=== PATIENT | female | born 1960 | race Caucasian/White ===

== ENCOUNTER 2016-08-17 17:09 | Observation (INO) | payer MEDICARE, MEDICAID ==
[~2016-08-17] VITALS: Ht 152.4 cm; Wt 88.8 kg
[~2016-08-17 17:09] MED LIST: DIVA500T2 PO; FLUO40CA9 PO; LEVO100T PO; NITR100C PO; RISP1TAB45 PO; TRAZ100T15 PO; TRAZODONE; ZIPR20CA2 PO
[2016-08-17 18:15] LABS: DAU SCREEN DISCLAIMER
[2016-08-17 18:35] LABS: BLOOD UREA NITROGEN 7 mg/dL (7-18)
[2016-08-17 18:44] LABS: ASPARTATE AMINO TRANSFERASE 17 U/L (15-37)
[2016-08-17 19:01] LABS: ACETAMINOPHEN < 2 mcg/mL (10-30)
[2016-08-17 19:02] LABS: PATH.CAST-FLAG NOT PRESENT; SPERM-FLAG NOT PRESENT; SRC-FLAG NOT PRESENT; XTAL-FLAG NOT PRESENT; YLC-FLAG NOT PRESENT
[2016-08-17] MEDS ORDERED: BENZTROPINE 1 MG TABLET PO PRN (22:00)
[2016-08-17 22:24] VITALS: BP 124/78
[2016-08-17] MEDS ORDERED: ALUMINUM/MAG/SIMETHICONE 30 ML UDC PO PRN (22:30)
[2016-08-17] MEDS ORDERED: PLEASE ENTER HEIGHT AND WEIGHT MC SCH (22:30)
[2016-08-17] MEDS: SULFAMETH./TRIMETHOPRIM DS 800MG/160MG TABLET PO SCH (23:06)
[2016-08-17] MEDS: ENOXAPARIN 40 MG/0.4 ML SQ SCH (23:07)
[2016-08-17] MEDS: NICOTINE 14MG/24 HR PATCH.TD24 TD SCH (23:08)
[2016-08-17] MEDS: TRAZODONE 100MG TABLET PO SCH (23:30)
[2016-08-18 08:09] VITALS: BP 100/66
[2016-08-18] MEDS: FLUOXETINE 20 MG CAPSULE PO SCH (08:32)
[2016-08-18] MEDS: SULFAMETH./TRIMETHOPRIM DS 800MG/160MG TABLET PO SCH ×2 (08:32→20:21)
[2016-08-18] MEDS: LEVOTHYROXINE 100 MCG TABLET PO SCH (08:32)
[2016-08-18] MEDS ORDERED: RISPERIDONE 1 MG TABLET PO SCH ×2 (09:00→21:00)
[2016-08-18] MEDS ORDERED: DIVALPROEX 500 MG TABLET.DR PO SCH ×2 (09:00→21:00)
[2016-08-18] MEDS: ACETAMINOPHEN 325 MG TABLET PO PRN ×2 (16:17→20:27)
[2016-08-18] MEDS: DIVALPROEX 500 MG TABLET.DR PO SCH (20:20)
[2016-08-18] MEDS: TRAZODONE 100MG TABLET PO SCH (20:20)
[2016-08-18] MEDS: ZIPRASIDONE 40MG CAPSULE PO SCH (20:20)
[2016-08-18 20:30] VITALS: BP 115/77
[2016-08-18] MEDS ORDERED: TRAZODONE 100MG TABLET PO SCH (21:00)
[2016-08-18] MEDS: NICOTINE 14MG/24 HR PATCH.TD24 TD SCH (22:14)
[2016-08-18] MEDS: ENOXAPARIN 40 MG/0.4 ML SQ SCH (22:14)
[2016-08-19] MEDS: LEVOTHYROXINE 100 MCG TABLET PO SCH (05:59)
[2016-08-19 07:49] VITALS: BP 107/69
[2016-08-19] MEDS: SULFAMETH./TRIMETHOPRIM DS 800MG/160MG TABLET PO SCH (08:39)
[2016-08-19] MEDS: FLUOXETINE 20 MG CAPSULE PO SCH (08:40)
[2016-08-19] MEDS: ACETAMINOPHEN 325 MG TABLET PO PRN ×2 (08:45→17:35)
[2016-08-19] MEDS: NICOTINE 14MG/24 HR PATCH.TD24 TD SCH (14:16)
[2016-08-19] MEDS ORDERED: NITR100C6 PO (15:47)
[2016-08-19 19:25] VITALS: BP 112/78
[2016-08-19] MEDS: ZIPRASIDONE 40MG CAPSULE PO SCH ×2 (20:07→20:39)
[2016-08-19] MEDS: DIVALPROEX 500 MG TABLET.DR PO SCH (20:07)
[2016-08-19] MEDS: NITROFURANTOIN (MACROBID) 100 MG CAPSULE PO SCH (20:07)
[2016-08-19] MEDS: TRAZODONE 100MG TABLET PO SCH (20:07)
[2016-08-19] MEDS: ENOXAPARIN 40 MG/0.4 ML SQ SCH (22:04)
[2016-08-20] MEDS: LEVOTHYROXINE 100 MCG TABLET PO SCH (05:58)
[2016-08-20 08:04] VITALS: BP 107/73
[2016-08-20] MEDS: NITROFURANTOIN (MACROBID) 100 MG CAPSULE PO SCH ×2 (08:45→21:13)
[2016-08-20] MEDS: FLUOXETINE 20 MG CAPSULE PO SCH (08:46)
[2016-08-20] MEDS: ACETAMINOPHEN 325 MG TABLET PO PRN (09:43)
[2016-08-20 19:46] VITALS: BP 103/67
[2016-08-20] MEDS: ZIPRASIDONE 40MG CAPSULE PO SCH (21:00)
[2016-08-20] MEDS: DIVALPROEX 500 MG TABLET.DR PO SCH (21:13)
[2016-08-20] MEDS: TRAZODONE 100MG TABLET PO SCH (21:13)
[2016-08-20] MEDS: ENOXAPARIN 40 MG/0.4 ML SQ SCH (21:14)
[2016-08-21] MEDS: LEVOTHYROXINE 100 MCG TABLET PO SCH (07:00)
[2016-08-21 08:00] VITALS: BP 105/67
[2016-08-21] MEDS: FLUOXETINE 20 MG CAPSULE PO SCH (09:00)
[2016-08-21] MEDS: NITROFURANTOIN (MACROBID) 100 MG CAPSULE PO SCH ×2 (09:03→20:52)
[2016-08-21] MEDS: NICOTINE 14MG/24 HR PATCH.TD24 TD SCH (09:05)
[2016-08-21] MEDS: ACETAMINOPHEN 325 MG TABLET PO PRN ×2 (11:18→20:52)
[2016-08-21 19:43] VITALS: BP 123/77
[2016-08-21] MEDS: TRAZODONE 100MG TABLET PO SCH (20:51)
[2016-08-21] MEDS: DIVALPROEX 500 MG TABLET.DR PO SCH (20:51)
[2016-08-21] MEDS: ZIPRASIDONE 40MG CAPSULE PO SCH (20:52)
[2016-08-21] MEDS: ENOXAPARIN 40 MG/0.4 ML SQ SCH (21:48)
[2016-08-22] MEDS: LEVOTHYROXINE 100 MCG TABLET PO SCH (06:28)
[2016-08-22 08:00] VITALS: BP 105/70
[2016-08-22] MEDS: NITROFURANTOIN (MACROBID) 100 MG CAPSULE PO SCH ×2 (09:00→21:00)
[2016-08-22] MEDS: FLUOXETINE 20 MG CAPSULE PO SCH (09:00)
[2016-08-22] MEDS: NICOTINE 14MG/24 HR PATCH.TD24 TD SCH (09:00)
[2016-08-22] MEDS: ACETAMINOPHEN 325 MG TABLET PO PRN (11:56)
[2016-08-22 19:43] VITALS: BP 109/75
[2016-08-22] MEDS: ENOXAPARIN 40 MG/0.4 ML SQ SCH ×2 (20:46→20:58)
[2016-08-22] MEDS: DIVALPROEX 500 MG TABLET.DR PO SCH ×2 (20:46→20:58)
[2016-08-22] MEDS: TRAZODONE 100MG TABLET PO SCH ×2 (20:47→20:59)
[2016-08-22] MEDS: ZIPRASIDONE 40MG CAPSULE PO SCH (20:57)
[2016-08-23] MEDS: LEVOTHYROXINE 100 MCG TABLET PO SCH (06:32)
[2016-08-23 07:39] VITALS: BP 101/62
[2016-08-23] MEDS: NITROFURANTOIN (MACROBID) 100 MG CAPSULE PO SCH (09:14)
[2016-08-23] MEDS: FLUOXETINE 20 MG CAPSULE PO SCH (09:16)
[2016-08-23] MEDS: NICOTINE 14MG/24 HR PATCH.TD24 TD SCH (09:17)
[2016-08-23] MEDS ORDERED: IBUPROFEN 200 MG TABLET ONE (10:37)
[2016-08-23] MEDS: IBUPROFEN 200 MG TABLET PO PRN ×2 (10:44→19:39)
[2016-08-23 19:52] VITALS: BP 108/73
[2016-08-23] MEDS: DIVALPROEX 500 MG TABLET.DR PO SCH (20:37)
[2016-08-23] MEDS: TRAZODONE 100MG TABLET PO SCH (20:38)
[2016-08-23] MEDS: ZIPRASIDONE 40MG CAPSULE PO SCH (20:39)
[2016-08-23] MEDS ORDERED: ENOXAPARIN 40 MG/0.4 ML SQ SCH (21:00)
[2016-08-24] MEDS: LEVOTHYROXINE 100 MCG TABLET PO SCH (06:33)
[2016-08-24 07:39] VITALS: BP 119/79
[2016-08-24] MEDS: FLUOXETINE 20 MG CAPSULE PO SCH (07:59)
[2016-08-24] MEDS: NICOTINE 14MG/24 HR PATCH.TD24 TD SCH (07:59)
[2016-08-24 19:14] VITALS: BP 140/77
[2016-08-24] MEDS: DIVALPROEX 500 MG TABLET.DR PO SCH (20:48)
[2016-08-24] MEDS: ZIPRASIDONE 40MG CAPSULE PO SCH (20:48)
[2016-08-24] MEDS: TRAZODONE 100MG TABLET PO SCH (20:48)
[2016-08-24] MEDS ORDERED: ENOXAPARIN 40 MG/0.4 ML SQ SCH (21:00)
[2016-08-25] MEDS: LEVOTHYROXINE 100 MCG TABLET PO SCH (07:23)
[2016-08-25 07:35] VITALS: BP 132/68
[2016-08-25] MEDS: FLUOXETINE 20 MG CAPSULE PO SCH (08:50)
[2016-08-25] MEDS: NICOTINE 14MG/24 HR PATCH.TD24 TD SCH (08:54)
[2016-08-25] MEDS: IBUPROFEN 200 MG TABLET PO PRN (18:04)
== END 2016-08-25 19:00 ==
LOC: ED 21:51 → 3E 22:22 → UNDOADMOB 22:22 → 3E 08-21 20:29
PROVIDERS: ADMIT Internal Medicine; ATTEND Internal Medicine
DX: F33.9 Major depressive disorder, recurrent, unspecified (principal); R45.851 Suicidal ideations; N39.0 Urinary tract infection, site not specified; B96.20 Unspecified Escherichia coli [E. coli] as the cause of diseases classified elsewhere; F10.10 Alcohol abuse, uncomplicated; E03.9 Hypothyroidism, unspecified; Z87.891 Personal history of nicotine dependence; Z90.710 Acquired absence of both cervix and uterus
CPT/HCPCS: 36415; 80053; 80164; 80307; 80329; 81001; 84443; 84703; 85025; 87077; 87086; 87186; 96372; 99285; G0378; J1650; Q0177; G0480

== ENCOUNTER 2016-10-28 08:22 | Emergency (ER) | payer MEDICARE, MEDICAID ==
[~2016-10-28] VITALS: Ht 152.4 cm; Wt 94.0 kg
[~2016-10-28 08:22] MED LIST changes: +NITR100C6 PO
[2016-10-28 09:21] LABS: HCG UR OBC PASS
[2016-10-28 09:23] LABS: ASPARTATE AMINO TRANSFERASE 13 U/L (15-37); BLOOD UREA NITROGEN 14 mg/dL (7-18)
[2016-10-28 10:15] VITALS: BP 134/74
== END 2016-10-28 10:26 | disposition home or self-care (01) ==
LOC: ED 09:00
DX: M25.571 Pain in right ankle and joints of right foot (principal); R60.0 Localized edema; N30.90 Cystitis, unspecified without hematuria; E03.9 Hypothyroidism, unspecified; F20.9 Schizophrenia, unspecified; F32.9 Major depressive disorder, single episode, unspecified; F41.9 Anxiety disorder, unspecified
CPT/HCPCS: 36415; 80053; 81001; 81025; 83690; 84443; 85025; 87077; 87086; 87186; 99284

== ENCOUNTER 2016-12-11 15:23 | Emergency (ER) | payer MEDICARE, MEDICAID ==
[~2016-12-11] VITALS: Ht 152.4 cm; Wt 98.5 kg
[2016-12-11 16:59] LABS: HEMATOCRIT 43.6 % (34.6-47.8); HEMOGLOBIN 14.8 g/dL (11.7-16.4); WHITE BLOOD COUNT 9.9 x10^3/uL (3.4-10)
[2016-12-11 17:07] LABS: BLOOD UREA NITROGEN 12 mg/dL (7-18)
[2016-12-11 17:17] LABS: VALPROIC ACID 38.9 mcg/mL (50.0-100.0)
[2016-12-11 18:35] VITALS: BP 148/79
== END 2016-12-11 19:11 | disposition home or self-care (01) ==
LOC: ED 19:00
DX: F32.9 Major depressive disorder, single episode, unspecified (principal); F20.9 Schizophrenia, unspecified; E03.9 Hypothyroidism, unspecified; Z88.0 Allergy status to penicillin
CPT/HCPCS: 36415; 80048; 80164; 82040; 84439; 84443; 85025; 99284

== ENCOUNTER 2016-12-19 01:33 | Observation (INO) | payer MEDICARE, MEDICAID ==
[~2016-12-19] VITALS: Ht 152.4 cm; Wt 101.5 kg
[2016-12-19] MEDS ORDERED: SERT25TA PO (02:08)
[2016-12-19] MEDS ORDERED: RISP0.2518 PO (02:08)
[2016-12-19 02:21] LABS: DAU SCREEN DISCLAIMER
[2016-12-19 02:23] LABS: WHITE BLOOD COUNT 8.4 x10^3/uL (3.4-10)
[2016-12-19 02:35] LABS: PATH.CAST-FLAG NOT PRESENT; SPERM-FLAG NOT PRESENT; SRC-FLAG NOT PRESENT; XTAL-FLAG NOT PRESENT; YLC-FLAG NOT PRESENT
[2016-12-19 02:35] LABS: BLOOD UREA NITROGEN 16 mg/dL (7-18)
[2016-12-19 02:39] LABS: ASPARTATE AMINO TRANSFERASE 11 U/L (15-37)
[2016-12-19 02:44] LABS: ACETAMINOPHEN < 2 mcg/mL (10-30)
[2016-12-19] MEDS ORDERED: CIPROFLOXACIN 500 MG TABLET ONE (03:09)
[2016-12-19] MEDS ORDERED: CIPROFLOXACIN 500 MG TABLET PO ONE (03:30)
[2016-12-19] MEDS ORDERED: POLYETHYLENE GLYCOL 17 GM PACKET PO PRN (06:00)
[2016-12-19] MEDS ORDERED: TRAZODONE 50MG TABLET PO PRN (06:00)
[2016-12-19] MEDS ORDERED: DOCUSATE 100 MG CAPSULE PO PRN (06:00)
[2016-12-19] MEDS ORDERED: SULFAMETH./TRIMETHOPRIM DS 800MG/160MG TABLET ONE (08:33)
[2016-12-19] MEDS: SULFAMETH./TRIMETHOPRIM DS 800MG/160MG TABLET PO SCH ×2 (08:40→20:43)
[2016-12-19] MEDS ORDERED: ACETAMINOPHEN 325 MG TABLET ONE (09:10)
[2016-12-19] MEDS: ACETAMINOPHEN 325 MG TABLET PO PRN ×2 (09:12→19:13)
[2016-12-19] MEDS: SERTRALINE 50MG TABLET PO SCH (09:13)
[2016-12-19] MEDS ORDERED: ONDANSETRON ODT 4 MG ONE (09:17)
[2016-12-19] MEDS: ONDANSETRON ODT 4 MG PO PRN (09:23)
[2016-12-19 19:11] VITALS: BP 115/75
[2016-12-19 19:58] VITALS: BP 107/72
[2016-12-19] MEDS: RISPERIDONE 1 MG TABLET PO SCH (20:43)
[2016-12-20] MEDS: ACETAMINOPHEN 325 MG TABLET PO PRN ×4 (00:33→20:52)
[2016-12-20] MEDS: ONDANSETRON ODT 4 MG PO PRN (01:39)
[2016-12-20 07:31] VITALS: BP 104/68
[2016-12-20] MEDS: SULFAMETH./TRIMETHOPRIM DS 800MG/160MG TABLET PO SCH ×2 (08:31→20:52)
[2016-12-20] MEDS: SERTRALINE 50MG TABLET PO SCH (08:32)
[2016-12-20 19:42] VITALS: BP 107/68
[2016-12-20] MEDS: RISPERIDONE 1 MG TABLET PO SCH (20:52)
[2016-12-21 07:57] VITALS: BP 131/83
[2016-12-21] MEDS: ACETAMINOPHEN 325 MG TABLET PO PRN (08:49)
[2016-12-21] MEDS: SULFAMETH./TRIMETHOPRIM DS 800MG/160MG TABLET PO SCH (08:50)
[2016-12-21] MEDS: SERTRALINE 50MG TABLET PO SCH (08:50)
[2016-12-21] MEDS ORDERED: NITROFURANTOIN (MACROBID) 100 MG CAPSULE PO SCH (16:00)
[2016-12-21] MEDS: NICOTINE 14MG/24 HR PATCH.TD24 TD SCH (16:31)
[2016-12-21] MEDS: NITROFURANTOIN (MACROBID) 100 MG CAPSULE PO SCH ×2 (19:25→22:09)
[2016-12-21 19:46] VITALS: BP 114/74
[2016-12-21] MEDS: RISPERIDONE 1 MG TABLET PO SCH (20:53)
[2016-12-22 08:00] VITALS: BP 111/80
[2016-12-22] MEDS: NITROFURANTOIN (MACROBID) 100 MG CAPSULE PO SCH ×2 (08:12→20:31)
[2016-12-22] MEDS: SERTRALINE 50MG TABLET PO SCH (08:13)
[2016-12-22] MEDS: NICOTINE 14MG/24 HR PATCH.TD24 TD SCH (16:21)
[2016-12-22] MEDS ORDERED: ALBUTEROL SULFATE 2.5 MG/3 ML NPPB PRN (16:30)
[2016-12-22 19:19] VITALS: BP 103/70
[2016-12-22] MEDS: RISPERIDONE 1 MG TABLET PO SCH (20:32)
[2016-12-23] MEDS: LEVOTHYROXINE 100 MCG TABLET PO SCH (06:23)
[2016-12-23] MEDS: NITROFURANTOIN (MACROBID) 100 MG CAPSULE PO SCH ×2 (08:33→20:56)
[2016-12-23] MEDS: SERTRALINE 50MG TABLET PO SCH (08:33)
[2016-12-23 08:47] VITALS: BP 142/81
[2016-12-23] MEDS: NICOTINE 14MG/24 HR PATCH.TD24 TD SCH (16:51)
[2016-12-23] MEDS ORDERED: ALBUTEROL SULFATE 2.5 MG/3 ML NPPB PRN (19:30)
[2016-12-23] MEDS ORDERED: DOCUSATE 100 MG CAPSULE PO PRN (19:30)
[2016-12-23] MEDS ORDERED: POLYETHYLENE GLYCOL 17 GM PACKET PO PRN (19:30)
[2016-12-23 20:36] VITALS: BP 132/86
[2016-12-23] MEDS: RISPERIDONE 1 MG TABLET PO SCH (20:56)
[2016-12-24] MEDS: LEVOTHYROXINE 100 MCG TABLET PO SCH (06:16)
[2016-12-24 08:05] VITALS: BP_SYST 137; BP_SYST 95; BP_DIAS 61; BP_DIAS 88
[2016-12-24] MEDS: NITROFURANTOIN (MACROBID) 100 MG CAPSULE PO SCH ×2 (08:47→20:41)
[2016-12-24] MEDS: SERTRALINE 50MG TABLET PO SCH (08:47)
[2016-12-24] MEDS: NICOTINE 14MG/24 HR PATCH.TD24 TD SCH (16:13)
[2016-12-24 19:24] VITALS: BP 118/72
[2016-12-24] MEDS: RISPERIDONE 1 MG TABLET PO SCH (20:41)
[2016-12-24] MEDS: ACETAMINOPHEN 325 MG TABLET PO PRN (20:44)
[2016-12-25] MEDS: LEVOTHYROXINE 100 MCG TABLET PO SCH (06:26)
[2016-12-25 07:59] VITALS: BP 106/74
[2016-12-25] MEDS: SERTRALINE 50MG TABLET PO SCH (08:29)
[2016-12-25] MEDS: NITROFURANTOIN (MACROBID) 100 MG CAPSULE PO SCH (08:29)
[2016-12-25] MEDS: ACETAMINOPHEN 325 MG TABLET PO PRN (11:02)
[2016-12-25] MEDS ORDERED: NITR100C6 PO (15:58)
[2016-12-25] MEDS ORDERED: SERT50TA5 PO (15:58)
[2016-12-25] MEDS ORDERED: NICO-486 TD (15:58)
[2016-12-25] MEDS ORDERED: RISP1TAB45 PO (15:58)
[2016-12-25] MEDS: NICOTINE 14MG/24 HR PATCH.TD24 TD SCH (16:48)
== END 2016-12-25 17:00 ==
LOC: ED 03:53 → EDIP 05:36 → 3E 17:19
PROVIDERS: ADMIT Hospitalist; ATTEND Family Medicine
DX: R45.851 Suicidal ideations (principal); N39.0 Urinary tract infection, site not specified; B96.20 Unspecified Escherichia coli [E. coli] as the cause of diseases classified elsewhere; E03.9 Hypothyroidism, unspecified; F15.10 Other stimulant abuse, uncomplicated; F20.9 Schizophrenia, unspecified; Z59.0 Homelessness; Z91.5 Personal history of self-harm
CPT/HCPCS: 36415; 71010; 80053; 80307; 80329; 81001; 85025; 87077; 87086; 87186; 94640; 99285; G0378; Q0162; J7613; G0479; G0480

== ENCOUNTER 2017-03-27 16:26 | Observation (INO) | payer MEDICARE, MEDICAID ==
[~2017-03-27] VITALS: Ht 147.3 cm; Wt 101.6 kg
[~2017-03-27 16:26] MED LIST changes: +NICO-486 TD; +RISP0.2518 PO; +SERT25TA PO; +SERT50TA5 PO
[2017-03-27] MEDS ORDERED: FLUO10CA7 PO (17:27)
[2017-03-27 17:50] LABS: BASOPHILS # (AUTO) 0.07 x10^3/uL (0-0.1); BASOPHILS % (AUTO) 1 % (0-1); EOSINOPHILS # (AUTO) 0.14 x10^3/uL (0-0.4); EOSINOPHILS % (AUTO) 1 % (1-7); LYMPHOCYTES # (AUTO) 1.89 x10^3/uL (1-3.4); LYMPHOCYTES % (AUTO) 17 % (22-44); MD NO; MEAN CORPUSCULAR HEMOGLOBIN 30.8 pg (27.0-34.8); MEAN CORPUSCULAR VOLUME 90.6 fL (80-100); MEAN PLATELET VOLUME 7.7 fL (7.4-10.4); MONOCYTES # (AUTO) 0.95 x10^3/uL (0.2-0.8); MONOCYTES % (AUTO) 9 % (2-9); NEUTROPHILS # (AUTO) 7.81 x10^3/uL (1.8-6.8); NEUTROPHILS % (AUTO) 72 % (42-75); PLATELET COUNT 372 x10^3/uL (130-400); RED BLOOD COUNT 5.11 x10^6/uL (3.82-5.3); RED CELL DISTRIBUTION WIDTH 13.8 % (9.6-15.2)
[2017-03-27 17:57] LABS: ALBUMIN 3.3 g/dL (3.4-5.0); ANION GAP 7 mmol/L (5-15); CALCIUM 8.7 mg/dL (8.5-10.1); CHLORIDE 103 mmol/L (98-107); CREATININE 0.73 mg/dL (0.55-1.02); SALICYLATE LEVEL 3.3 mg/dL (2.8-20.0)
[2017-03-27 17:58] LABS: ACETAMINOPHEN < 2 mcg/mL (10-30)
[2017-03-27 19:49] LABS: CULTURE INDICATED? YES
[2017-03-27 19:58] LABS: AMPHETAMINE SCREEN, URINE Negative (Negative); BARBITURATE SCREEN, URINE Negative (Negative); BENZODIAZEPINE SCREEN, URINE Negative (Negative); CANNABINOID SCREEN, URINE Negative (Negative); COCAINE SCREEN, URINE Negative (Negative); METHADONE SCREEN, URINE Negative (Negative); OPIATE SCREEN, URINE Negative (Negative)
[2017-03-27] MEDS ORDERED: ONDANSETRON ODT 4 MG PO PRN (20:00)
[2017-03-27 20:04] LABS: MICROSCOPIC INDICATED
[2017-03-27] MEDS: RISPERIDONE 1 MG TABLET PO SCH (22:15)
[2017-03-28] MEDS: LEVOTHYROXINE 100 MCG TABLET PO SCH (09:00)
[2017-03-29] MEDS: LEVOTHYROXINE 100 MCG TABLET PO SCH (09:00)
[2017-03-29] MEDS: RISPERIDONE 1 MG TABLET PO SCH (21:00)
[2017-03-30] MEDS: LEVOTHYROXINE 100 MCG TABLET PO SCH (10:37)
[2017-03-30] MEDS: RISPERIDONE 1 MG TABLET PO SCH ×2 (21:00→21:41)
[2017-03-30 21:26] VITALS: BP 124/71
[2017-03-31 07:00] VITALS: BP 111/59
[2017-03-31] MEDS: LEVOTHYROXINE 100 MCG TABLET PO SCH (07:38)
[2017-03-31] MEDS: ACETAMINOPHEN 325 MG TABLET PO PRN ×2 (07:38→14:53)
[2017-03-31 20:00] VITALS: BP 125/83
[2017-03-31] MEDS: TRAZODONE 50MG TABLET PO PRN (21:17)
[2017-03-31] MEDS: RISPERIDONE 1 MG TABLET PO SCH (21:18)
[2017-04-01 08:00] VITALS: BP 123/81
[2017-04-01] MEDS: LEVOTHYROXINE 100 MCG TABLET PO SCH (09:21)
[2017-04-01 19:40] VITALS: BP 96/69
[2017-04-01] MEDS: TRAZODONE 50MG TABLET PO PRN (21:44)
[2017-04-01] MEDS: RISPERIDONE 1 MG TABLET PO SCH (21:44)
[2017-04-02 08:00] VITALS: BP 100/64
[2017-04-02] MEDS: LEVOTHYROXINE 100 MCG TABLET PO SCH (09:02)
[2017-04-02] MEDS: NICOTINE 7 MG/24 HR PATCH.TD24 TD SCH (10:29)
[2017-04-02 19:26] VITALS: BP 102/64
[2017-04-02] MEDS: RISPERIDONE 1 MG TABLET PO SCH (20:09)
[2017-04-03] MEDS: LEVOTHYROXINE 100 MCG TABLET PO SCH (06:58)
[2017-04-03 07:29] VITALS: BP 108/77
[2017-04-03] MEDS: NICOTINE 7 MG/24 HR PATCH.TD24 TD SCH (10:32)
[2017-04-03] MEDS: ACETAMINOPHEN 325 MG TABLET PO PRN (18:02)
[2017-04-03 19:30] VITALS: BP 100/64
[2017-04-03] MEDS: RISPERIDONE 1 MG TABLET PO SCH (20:50)
[2017-04-03] MEDS ORDERED: DIVALPROEX 500 MG TAB.ER.24H PO SCH (21:00)
[2017-04-04 07:09] VITALS: BP 120/82
[2017-04-04] MEDS: LEVOTHYROXINE 100 MCG TABLET PO SCH (07:47)
[2017-04-04] MEDS: NICOTINE 7 MG/24 HR PATCH.TD24 TD SCH (07:48)
[2017-04-04] MEDS: ACETAMINOPHEN 325 MG TABLET PO PRN (10:02)
== END 2017-04-04 12:47 | disposition home or self-care (01) ==
LOC: ED 19:37 → EDIP 19:45 → SUATTDRO 19:46 → 2N 03-30 21:26
PROVIDERS: ADMIT Hospitalist; ATTEND Internal Medicine
DX: R45.851 Suicidal ideations (principal); E03.9 Hypothyroidism, unspecified; E66.01 Morbid (severe) obesity due to excess calories; F20.9 Schizophrenia, unspecified; F33.2 Major depressive disorder, recurrent severe without psychotic features; Z87.440 Personal history of urinary (tract) infections; Z79.899 Other long term (current) drug therapy; Z91.5 Personal history of self-harm; Z90.710 Acquired absence of both cervix and uterus
CPT/HCPCS: 36415; 80048; 80307; 80329; 81001; 82040; 85025; 87086; 99285; G0378; G0479; G0480

== ENCOUNTER 2017-04-20 22:44 | Emergency (ER) | payer MEDICARE, MEDICAID ==
[~2017-04-20] VITALS: Ht 152.4 cm; Wt 90.9 kg
[~2017-04-20 22:44] MED LIST changes: +FLUO10CA7 PO
[2017-04-20 22:47] VITALS: BP 132/88
[2017-04-20 23:30] LABS: MICROSCOPIC NOT IND
[2017-04-20 23:33] LABS: CULTURE INDICATED? NO
[2017-04-20 23:35] LABS: AMPHETAMINE SCREEN, URINE Negative (Negative); BARBITURATE SCREEN, URINE Negative (Negative); BENZODIAZEPINE SCREEN, URINE Negative (Negative); CANNABINOID SCREEN, URINE Negative (Negative); COCAINE SCREEN, URINE Negative (Negative); METHADONE SCREEN, URINE Negative (Negative); OPIATE SCREEN, URINE Negative (Negative)
[2017-04-20] MEDS ORDERED: ACETAMINOPHEN 325 MG TABLET ONE (23:37)
[2017-04-21] MEDS ORDERED: ACETAMINOPHEN 325 MG TABLET PO ONE
== END 2017-04-21 00:30 | disposition home or self-care (01) ==
LOC: ED 23:58
DX: F32.9 Major depressive disorder, single episode, unspecified (principal); E03.9 Hypothyroidism, unspecified; F20.9 Schizophrenia, unspecified; Z88.0 Allergy status to penicillin; Z90.710 Acquired absence of both cervix and uterus
CPT/HCPCS: 80307; 81003; 99284

== ENCOUNTER 2017-07-08 14:15 | Emergency (ER) | payer MEDICARE, MEDICAID ==
[~2017-07-08] VITALS: Ht 152.4 cm; Wt 101.9 kg
[2017-07-08 15:12] LABS: BASOPHILS # (AUTO) 0.05 x10^3/uL (0-0.1); BASOPHILS % (AUTO) 0 % (0-1); EOSINOPHILS # (AUTO) 0.13 x10^3/uL (0-0.4); EOSINOPHILS % (AUTO) 1 % (1-7); LYMPHOCYTES # (AUTO) 2.35 x10^3/uL (1-3.4); LYMPHOCYTES % (AUTO) 22 % (22-44); MD NO; MEAN CORPUSCULAR HEMOGLOBIN 31.2 pg (27.0-34.8); MEAN CORPUSCULAR HGB CONC 34.3 g/dL (32.4-35.8); MEAN PLATELET VOLUME 7.8 fL (7.4-10.4); MONOCYTES # (AUTO) 0.83 x10^3/uL (0.2-0.8); MONOCYTES % (AUTO) 8 % (2-9); NEUTROPHILS # (AUTO) 7.39 x10^3/uL (1.8-6.8); NEUTROPHILS % (AUTO) 69 % (42-75); PLATELET COUNT 368 x10^3/uL (130-400); RED BLOOD COUNT 5.12 x10^6/uL (3.82-5.3); RED CELL DISTRIBUTION WIDTH 14.2 % (9.6-15.2)
[2017-07-08 15:20] LABS: ALBUMIN 3.3 g/dL (3.4-5.0); ANION GAP 7 mmol/L (5-15); CALCIUM 8.7 mg/dL (8.5-10.1); CHLORIDE 104 mmol/L (98-107); CREATININE 0.73 mg/dL (0.55-1.02)
[2017-07-08 16:47] VITALS: BP 138/70
== END 2017-07-08 16:47 | disposition home or self-care (01) ==
LOC: ED 16:15
DX: M54.5 Low back pain (principal); G89.29 Other chronic pain; E03.9 Hypothyroidism, unspecified; F20.9 Schizophrenia, unspecified
CPT/HCPCS: 36415; 72110; 80048; 80307; 82040; 85025; 99285

== ENCOUNTER 2017-08-15 07:09 | Inpatient (IN) | payer MEDICARE, MEDICAID ==
[~2017-08-15] VITALS: Ht 172.7 cm; Wt 107.1 kg
[2017-08-15] MEDS ORDERED: DIVA500T2 PO (07:33)
[2017-08-15] MEDS ORDERED: TRAZ100T15 PO (07:33)
[2017-08-15] MEDS ORDERED: SERT50TA PO (07:33)
[2017-08-15] MEDS ORDERED: LEVO25TA4 PO (07:33)
[2017-08-15 08:05] LABS: ALBUMIN 3.1 g/dL (3.4-5.0); ANION GAP 6 mmol/L (5-15); BASOPHILS # (AUTO) 0.02 x10^3/uL (0-0.1); BASOPHILS % (AUTO) 0 % (0-1); CALCIUM 8.3 mg/dL (8.5-10.1); CHLORIDE 107 mmol/L (98-107); CREATININE 0.69 mg/dL (0.55-1.02); EOSINOPHILS # (AUTO) 0.14 x10^3/uL (0-0.4); EOSINOPHILS % (AUTO) 2 % (1-7); LYMPHOCYTES # (AUTO) 1.64 x10^3/uL (1-3.4); LYMPHOCYTES % (AUTO) 26 % (22-44); MD NO; MEAN CORPUSCULAR HEMOGLOBIN 30.2 pg (27.0-34.8); MEAN CORPUSCULAR HGB CONC 33.3 g/dL (32.4-35.8); MEAN CORPUSCULAR VOLUME 90.9 fL (80-100); MONOCYTES # (AUTO) 0.61 x10^3/uL (0.2-0.8); MONOCYTES % (AUTO) 10 % (2-9); NEUTROPHILS # (AUTO) 4.01 x10^3/uL (1.8-6.8); NEUTROPHILS % (AUTO) 62 % (42-75); PLATELET COUNT 329 x10^3/uL (130-400); RED BLOOD COUNT 4.93 x10^6/uL (3.82-5.3); RED CELL DISTRIBUTION WIDTH 14.9 % (9.6-15.2); SALICYLATE LEVEL 3.2 mg/dL (2.8-20.0)
[2017-08-15 08:07] LABS: ACETAMINOPHEN < 2 mcg/mL (10-30)
[2017-08-15 08:13] LABS: HCG UR SG 1.027 (1.003-1.030)
[2017-08-15 08:26] LABS: AMPHETAMINE SCREEN, URINE Negative (Negative); BARBITURATE SCREEN, URINE Negative (Negative); BENZODIAZEPINE SCREEN, URINE Negative (Negative); CANNABINOID SCREEN, URINE Negative (Negative); COCAINE SCREEN, URINE Negative (Negative); METHADONE SCREEN, URINE Negative (Negative); OPIATE SCREEN, URINE Negative (Negative)
[2017-08-15 08:48] LABS: CULTURE INDICATED? YES; MICROSCOPIC INDICATED
[2017-08-15] MEDS ORDERED: CEFDINIR 300 MG CAPSULE ONE ×2 (09:58→21:25)
[2017-08-15] MEDS ORDERED: CEFDINIR 300 MG CAPSULE PO ONE (11:00)
[2017-08-15] MEDS ORDERED: POLYETHYLENE GLYCOL 17 GM PACKET PO PRN (11:30)
[2017-08-15] MEDS ORDERED: BISACODYL 10 MG SUPP PR PRN (11:30)
[2017-08-15] MEDS ORDERED: DOCUSATE 100 MG CAPSULE PO PRN (11:30)
[2017-08-15] MEDS ORDERED: ONDANSETRON ODT 4 MG PO PRN (11:30)
[2017-08-15] MEDS ORDERED: NICOTINE 21 MG/24 HR PATCH.TD24 ONE (16:29)
[2017-08-15] MEDS: NICOTINE 21 MG/24 HR PATCH.TD24 TD SCH (16:51)
[2017-08-15] MEDS ORDERED: DIVALPROEX 500 MG TABLET.DR PO SCH (21:00)
[2017-08-15] MEDS: CEFDINIR 300 MG CAPSULE PO SCH (21:26)
[2017-08-15] MEDS: DIVALPROEX 500 MG TABLET.DR PO SCH (21:26)
[2017-08-15] MEDS: TRAZODONE 100MG TABLET PO SCH (21:27)
[2017-08-15 22:30] VITALS: BP 113/76
[2017-08-16 07:54] VITALS: BP 111/69
[2017-08-16] MEDS: CEFDINIR 300 MG CAPSULE PO SCH ×2 (09:40→20:37)
[2017-08-16] MEDS: NICOTINE 21 MG/24 HR PATCH.TD24 TD SCH (09:41)
[2017-08-16] MEDS: SERTRALINE 50MG TABLET PO SCH (09:41)
[2017-08-16] MEDS: LEVOTHYROXINE 100 MCG TABLET PO SCH (09:41)
[2017-08-16 20:11] VITALS: BP 123/78
[2017-08-16] MEDS: TRAZODONE 100MG TABLET PO SCH (20:37)
[2017-08-16] MEDS: DIVALPROEX 500 MG TABLET.DR PO SCH (20:39)
[2017-08-16] MEDS ORDERED: DIVALPROEX 500 MG TABLET.DR PO SCH (21:00)
[2017-08-17 07:50] VITALS: BP 94/60
[2017-08-17] MEDS: SERTRALINE 50MG TABLET PO SCH (08:47)
[2017-08-17] MEDS: LEVOTHYROXINE 100 MCG TABLET PO SCH (08:47)
[2017-08-17] MEDS: CEFDINIR 300 MG CAPSULE PO SCH ×2 (08:47→20:50)
[2017-08-17] MEDS: NICOTINE 21 MG/24 HR PATCH.TD24 TD SCH (09:03)
[2017-08-17 19:40] VITALS: BP 103/70
[2017-08-17] MEDS: ACETAMINOPHEN 325 MG TABLET PO PRN (19:50)
[2017-08-17] MEDS: DIVALPROEX 500 MG TABLET.DR PO SCH (20:50)
[2017-08-17] MEDS: TRAZODONE 100MG TABLET PO SCH (20:50)
[2017-08-18 08:45] VITALS: BP 188/82
[2017-08-18] MEDS: CEFDINIR 300 MG CAPSULE PO SCH ×2 (08:49→20:29)
[2017-08-18] MEDS: SERTRALINE 50MG TABLET PO SCH (08:50)
[2017-08-18] MEDS: LEVOTHYROXINE 100 MCG TABLET PO SCH (08:50)
[2017-08-18] MEDS: NICOTINE 21 MG/24 HR PATCH.TD24 TD SCH (11:15)
[2017-08-18 19:40] VITALS: BP 107/71
[2017-08-18] MEDS: TRAZODONE 100MG TABLET PO SCH (20:29)
[2017-08-18] MEDS: DIVALPROEX 500 MG TABLET.DR PO SCH (20:29)
[2017-08-18] MEDS: ACETAMINOPHEN 325 MG TABLET PO PRN (20:29)
[2017-08-19 08:06] VITALS: BP 97/60
[2017-08-19] MEDS: CEFDINIR 300 MG CAPSULE PO SCH ×2 (08:06→21:14)
[2017-08-19] MEDS: LEVOTHYROXINE 100 MCG TABLET PO SCH (08:06)
[2017-08-19] MEDS: SERTRALINE 50MG TABLET PO SCH (08:06)
[2017-08-19] MEDS: NICOTINE 21 MG/24 HR PATCH.TD24 TD SCH (08:07)
[2017-08-19] MEDS ORDERED: ALBUTEROL SULFATE 2.5 MG/3 ML NPPB PRN (17:30)
[2017-08-19 19:57] VITALS: BP 107/73
[2017-08-19] MEDS: DIVALPROEX 500 MG TABLET.DR PO SCH (21:14)
[2017-08-19] MEDS: TRAZODONE 100MG TABLET PO SCH (21:14)
[2017-08-20 07:51] VITALS: BP 130/76
[2017-08-20] MEDS: LEVOTHYROXINE 100 MCG TABLET PO SCH (08:32)
[2017-08-20] MEDS: SERTRALINE 50MG TABLET PO SCH (08:32)
[2017-08-20] MEDS: CEFDINIR 300 MG CAPSULE PO SCH (08:32)
[2017-08-20] MEDS: NICOTINE 21 MG/24 HR PATCH.TD24 TD SCH (12:27)
[2017-08-20 19:49] VITALS: BP 112/78
[2017-08-20] MEDS: DIVALPROEX 500 MG TABLET.DR PO SCH (21:02)
[2017-08-20] MEDS: TRAZODONE 100MG TABLET PO SCH (21:02)
[2017-08-21 08:34] VITALS: BP 115/75
[2017-08-21] MEDS: NICOTINE 21 MG/24 HR PATCH.TD24 TD SCH (08:43)
[2017-08-21] MEDS: SERTRALINE 50MG TABLET PO SCH (08:43)
[2017-08-21] MEDS: LEVOTHYROXINE 100 MCG TABLET PO SCH (08:43)
[2017-08-21 19:31] VITALS: BP 130/65
[2017-08-21] MEDS: DIVALPROEX 500 MG TABLET.DR PO SCH (20:03)
[2017-08-21] MEDS: TRAZODONE 100MG TABLET PO SCH (20:03)
[2017-08-21] MEDS: ACETAMINOPHEN 325 MG TABLET PO PRN (20:11)
[2017-08-22 08:15] VITALS: BP 118/82
[2017-08-22] MEDS: LEVOTHYROXINE 100 MCG TABLET PO SCH (08:42)
[2017-08-22] MEDS: SERTRALINE 50MG TABLET PO SCH (08:42)
[2017-08-22] MEDS: NICOTINE 21 MG/24 HR PATCH.TD24 TD SCH (12:45)
== END 2017-08-22 15:50 | disposition home or self-care (01) | DRG 690 ==
LOC: ED 11:07 → EDIP 11:08 → ED 12:06 → 3E 21:45 → OBSVTOIN 08-16 14:30
PROVIDERS: ADMIT Internal Medicine; ATTEND Internal Medicine
DX: N39.0 Urinary tract infection, site not specified (principal); R45.851 Suicidal ideations; E44.0 Moderate protein-calorie malnutrition; F20.9 Schizophrenia, unspecified; F32.9 Major depressive disorder, single episode, unspecified; B96.20 Unspecified Escherichia coli [E. coli] as the cause of diseases classified elsewhere; E03.9 Hypothyroidism, unspecified; F17.210 Nicotine dependence, cigarettes, uncomplicated; F41.9 Anxiety disorder, unspecified; J44.9 Chronic obstructive pulmonary disease, unspecified; N95.0 Postmenopausal bleeding; E66.9 Obesity, unspecified; Z68.35 Body mass index [BMI] 35.0-35.9, adult; Z91.5 Personal history of self-harm
CPT/HCPCS: 36415; 76830; 80048; 80307; 80329; 81001; 81025; 82040; 84443; 85025; 87077; 87086; 87186; 94640; G0378; J7613; G0480

== ENCOUNTER 2017-08-24 06:58 | Observation (INO) | payer MEDICARE, MEDICAID ==
[~2017-08-24] VITALS: Ht 152.4 cm; Wt 102.0 kg
[~2017-08-24 06:58] MED LIST changes: +LEVO25TA4 PO; +SERT50TA PO
[2017-08-24 07:29] LABS: BASOPHILS # (AUTO) 0.06 x10^3/uL (0-0.1); BASOPHILS % (AUTO) 1 % (0-1); EOSINOPHILS # (AUTO) 0.16 x10^3/uL (0-0.4); EOSINOPHILS % (AUTO) 2 % (1-7); LYMPHOCYTES # (AUTO) 1.74 x10^3/uL (1-3.4); LYMPHOCYTES % (AUTO) 21 % (22-44); MD NO; MEAN CORPUSCULAR HEMOGLOBIN 30.8 pg (27.0-34.8); MEAN CORPUSCULAR HGB CONC 34.1 g/dL (32.4-35.8); MEAN CORPUSCULAR VOLUME 90.3 fL (80-100); MEAN PLATELET VOLUME 7.9 fL (7.4-10.4); MONOCYTES % (AUTO) 10 % (2-9); NEUTROPHILS # (AUTO) 5.36 x10^3/uL (1.8-6.8); NEUTROPHILS % (AUTO) 66 % (42-75); PLATELET COUNT 344 x10^3/uL (130-400); RED BLOOD COUNT 5.19 x10^6/uL (3.82-5.3); RED CELL DISTRIBUTION WIDTH 14.5 % (9.6-15.2)
[2017-08-24] MEDS ORDERED: KETOROLAC 30 MG/1 ML IM ONE (07:30)
[2017-08-24] MEDS ORDERED: KETOROLAC 30 MG/1 ML ONE (07:30)
[2017-08-24 07:37] LABS: ALANINE AMINOTRANSFERASE 19 U/L (12-78); ALBUMIN 3.4 g/dL (3.4-5.0); ANION GAP 9 mmol/L (5-15); CALCIUM 8.8 mg/dL (8.5-10.1); CHLORIDE 105 mmol/L (98-107); SALICYLATE LEVEL 3.1 mg/dL (2.8-20.0)
[2017-08-24 07:40] LABS: ALKALINE PHOSPHATASE 36 U/L (45-117); BILIRUBIN,TOTAL 0.4 mg/dL (0.2-1.0); CREATININE 0.68 mg/dL (0.55-1.02); TOTAL PROTEIN 7.4 g/dL (6.4-8.2)
[2017-08-24 07:47] LABS: ACETAMINOPHEN < 2 mcg/mL (10-30)
[2017-08-24 07:50] LABS: AMPHETAMINE SCREEN, URINE Negative (Negative); BARBITURATE SCREEN, URINE Negative (Negative); BENZODIAZEPINE SCREEN, URINE Negative (Negative); CANNABINOID SCREEN, URINE Negative (Negative); COCAINE SCREEN, URINE Negative (Negative); METHADONE SCREEN, URINE Negative (Negative); OPIATE SCREEN, URINE Negative (Negative)
[2017-08-24] MEDS ORDERED: ZIPRASIDONE 20MG CAPSULE PO PRN (10:00)
[2017-08-24] MEDS ORDERED: HALOPERIDOL 5 MG TABLET PO PRN (10:00)
[2017-08-24] MEDS ORDERED: ZIPRASIDONE 20 MG INJ IM PRN (10:00)
[2017-08-24] MEDS ORDERED: DIPHENHYDRAMINE 50 MG CAPSULE PO PRN (10:00)
[2017-08-24] MEDS ORDERED: POLYETHYLENE GLYCOL 17 GM PACKET PO PRN (10:00)
[2017-08-24] MEDS ORDERED: ASA/APAP/ CAFFEINE TABLET PO PRN (10:00)
[2017-08-24] MEDS ORDERED: ACETAMINOPHEN 325 MG TABLET PO PRN (10:00)
[2017-08-24] MEDS ORDERED: HALOPERIDOL 5 MG/ML IM PRN (10:00)
[2017-08-24 11:25] LABS: MICROSCOPIC INDICATED
[2017-08-24] MEDS: NICOTINE 21 MG/24 HR PATCH.TD24 TD SCH ×2 (11:40→20:20)
[2017-08-24 11:50] LABS: CULTURE INDICATED? NO
[2017-08-24] MEDS ORDERED: LORazepam 1MG TABLET ONE (19:49)
[2017-08-24] MEDS ORDERED: NICOTINE 21 MG/24 HR PATCH.TD24 ONE (19:49)
[2017-08-24] MEDS: LORazepam 1MG TABLET PO PRN (19:53)
[2017-08-24 22:10] VITALS: BP 162/79
[2017-08-25 07:46] VITALS: BP 136/86
[2017-08-25] MEDS: SENNA/DOCUSATE TABLET PO SCH (08:26)
[2017-08-25 19:39] VITALS: BP 99/64
[2017-08-26] MEDS: SENNA/DOCUSATE TABLET PO SCH (07:24)
[2017-08-26] MEDS: NICOTINE 21 MG/24 HR PATCH.TD24 TD SCH (07:24)
[2017-08-26 07:38] VITALS: BP 135/71
[2017-08-26] MEDS ORDERED: DIVALPROEX MC SCH (15:00)
[2017-08-26] MEDS: LORazepam 1MG TABLET PO PRN (17:50)
[2017-08-26 19:37] VITALS: BP 109/66
[2017-08-26] MEDS: DIVALPROEX 500 MG TABLET.DR PO SCH (20:21)
[2017-08-26] MEDS: TRAZODONE 100MG TABLET PO SCH (20:21)
[2017-08-26] MEDS ORDERED: DIVALPROEX 500 MG TABLET.DR PO SCH (21:00)
[2017-08-27] MEDS: LEVOTHYROXINE 100 MCG TABLET PO SCH (05:29)
[2017-08-27 07:48] VITALS: BP 102/69
[2017-08-27] MEDS: SENNA/DOCUSATE TABLET PO SCH (08:31)
[2017-08-27] MEDS: SERTRALINE 50MG TABLET PO SCH (08:31)
[2017-08-27] MEDS: NICOTINE 21 MG/24 HR PATCH.TD24 TD SCH (08:33)
[2017-08-27 19:38] VITALS: BP 93/60
[2017-08-27] MEDS: DIVALPROEX 500 MG TABLET.DR PO SCH (20:04)
[2017-08-27] MEDS: TRAZODONE 100MG TABLET PO SCH (20:04)
[2017-08-28] MEDS: LEVOTHYROXINE 100 MCG TABLET PO SCH (06:15)
[2017-08-28 07:33] VITALS: BP 107/73
[2017-08-28] MEDS: SERTRALINE 50MG TABLET PO SCH (08:25)
[2017-08-28] MEDS: SENNA/DOCUSATE TABLET PO SCH (08:29)
[2017-08-28] MEDS: NICOTINE 21 MG/24 HR PATCH.TD24 TD SCH (08:29)
[2017-08-28 19:29] VITALS: BP 110/76
[2017-08-28] MEDS: DIVALPROEX 500 MG TABLET.DR PO SCH (20:18)
[2017-08-28] MEDS: TRAZODONE 100MG TABLET PO SCH (20:18)
[2017-08-29] MEDS: LEVOTHYROXINE 100 MCG TABLET PO SCH (06:36)
[2017-08-29 07:40] VITALS: BP 113/77
[2017-08-29] MEDS: SENNA/DOCUSATE TABLET PO SCH (08:20)
[2017-08-29] MEDS: SERTRALINE 50MG TABLET PO SCH (08:23)
[2017-08-29] MEDS: NICOTINE 21 MG/24 HR PATCH.TD24 TD SCH (08:32)
== END 2017-08-29 16:06 | disposition home or self-care (01) ==
LOC: ED 07:33 → EDIP 09:23 → 3E 22:05
PROVIDERS: ADMIT Hospitalist; ATTEND Hospitalist
DX: R45.851 Suicidal ideations (principal); F20.0 Paranoid schizophrenia; F32.9 Major depressive disorder, single episode, unspecified; E03.9 Hypothyroidism, unspecified; F17.210 Nicotine dependence, cigarettes, uncomplicated; G47.00 Insomnia, unspecified; Z59.0 Homelessness; Z91.14 Patient's other noncompliance with medication regimen; Z91.19 Patient's noncompliance with other medical treatment and regimen; Z91.5 Personal history of self-harm
CPT/HCPCS: 36415; 80053; 80307; 80329; 81001; 85025; 96372; 99285; G0378; J1885; G0480

== ENCOUNTER 2017-10-17 17:30 | Emergency (ER) | payer MEDICARE, MEDICAID ==
[~2017-10-17] VITALS: Ht 152.4 cm; Wt 102.8 kg
[2017-10-17 17:59] LABS: BASOPHILS # (AUTO) 0.04 x10^3/uL (0-0.1); BASOPHILS % (AUTO) 0 % (0-1); EOSINOPHILS # (AUTO) 0.21 x10^3/uL (0-0.4); EOSINOPHILS % (AUTO) 2 % (1-7); LYMPHOCYTES # (AUTO) 2.28 x10^3/uL (1-3.4); LYMPHOCYTES % (AUTO) 22 % (22-44); MD NO; MEAN CORPUSCULAR HEMOGLOBIN 31.1 pg (27.0-34.8); MEAN CORPUSCULAR VOLUME 91.4 fL (80-100); MEAN PLATELET VOLUME 7.9 fL (7.4-10.4); MONOCYTES # (AUTO) 1.16 x10^3/uL (0.2-0.8); MONOCYTES % (AUTO) 11 % (2-9); NEUTROPHILS # (AUTO) 6.63 x10^3/uL (1.8-6.8); NEUTROPHILS % (AUTO) 64 % (42-75); PLATELET COUNT 335 x10^3/uL (130-400); RED BLOOD COUNT 4.91 x10^6/uL (3.82-5.3); RED CELL DISTRIBUTION WIDTH 14.2 % (9.6-15.2)
[2017-10-17 18:10] LABS: ALANINE AMINOTRANSFERASE 17 U/L (12-78); ALBUMIN 3.6 g/dL (3.4-5.0); ANION GAP 6 mmol/L (5-15); CALCIUM 9.4 mg/dL (8.5-10.1); CHLORIDE 106 mmol/L (98-107); CREATININE 0.78 mg/dL (0.55-1.02)
[2017-10-17 18:13] LABS: ALKALINE PHOSPHATASE 34 U/L (45-117); BILIRUBIN,TOTAL 0.3 mg/dL (0.2-1.0); TOTAL PROTEIN 7.2 g/dL (6.4-8.2)
[2017-10-17 18:54] VITALS: BP 125/76
== END 2017-10-17 19:22 | disposition home or self-care (01) ==
LOC: ED 19:14
DX: R42 Dizziness and giddiness (principal); R55 Syncope and collapse; R51 Headache; E03.9 Hypothyroidism, unspecified; F20.9 Schizophrenia, unspecified; Z90.710 Acquired absence of both cervix and uterus; F17.210 Nicotine dependence, cigarettes, uncomplicated
CPT/HCPCS: 36415; 80053; 85025; 93005; 99285

== ENCOUNTER 2018-02-01 03:40 | Emergency (ER) | payer MEDICARE, MEDICAID ==
[~2018-02-01] VITALS: Ht 152.4 cm; Wt 90.9 kg
[~2018-02-01 03:40] MED LIST changes: +TRAZ-137 PO; -TRAZ100T15 PO
[2018-02-01 03:47] VITALS: BP 121/63
== END 2018-02-01 04:45 | disposition home or self-care (01) ==
LOC: ED 04:35
DX: F20.9 Schizophrenia, unspecified (principal); F17.200 Nicotine dependence, unspecified, uncomplicated
CPT/HCPCS: 99284

== ENCOUNTER 2018-04-19 00:43 | Inpatient (IN) | payer MEDICARE, MEDICAID ==
[~2018-04-19] VITALS: Ht 152.4 cm; Wt 100.4 kg
[~2018-04-19 00:43] MED LIST changes: +DIVA125T2 PO; +LEVO25TA2 PO; +SERT50TA28 PO; -SERT50TA5 PO; +naproxen PO
[2018-04-19] MEDS ORDERED: POLYETHYLENE GLYCOL 17 GM PACKET PO PRN (02:00)
[2018-04-19] MEDS ORDERED: ONDANSETRON ODT 4 MG PO PRN (02:00)
[2018-04-19 02:20] LABS: MICROSCOPIC NOT IND
[2018-04-19 02:22] LABS: CULTURE INDICATED? NO
[2018-04-19] MEDS: TRAZODONE 100MG TABLET PO SCH ×2 (02:30→20:12)
[2018-04-19 02:36] LABS: CHOLESTEROL, TOTAL 190 mg/dL (140-239)
[2018-04-19 02:40] LABS: FREE T4 (FREE THYROXINE) 0.95 ng/dL (0.76-1.46); HDL CHOL % 25 % (28-40); HDL CHOLESTEROL (DIRECT) 47 mg/dL (40-60); LDL CHOLESTEROL,CALCULATED 113 mg/dL (54-169); LDL/HDL RATIO 2.4 (0.5-3.0); TRIGLYCERIDES 151 mg/dL (50-200); VLDL CHOLESTEROL 30 mg/dL (0-25)
[2018-04-19] MEDS: DIVALPROEX 500 MG TABLET.DR PO SCH ×2 (03:50→20:12)
[2018-04-19] MEDS: LEVOTHYROXINE 100 MCG TABLET PO SCH (05:42)
[2018-04-19 07:50] VITALS: BP 136/77
[2018-04-19] MEDS: SERTRALINE 50MG TABLET PO SCH ×2 (09:00→10:00)
[2018-04-19] MEDS: NICOTINE 14MG/24 HR PATCH.TD24 TD SCH ×2 (09:00→10:30)
[2018-04-19 19:31] VITALS: BP 112/71
[2018-04-20] MEDS: LEVOTHYROXINE 100 MCG TABLET PO SCH (06:12)
[2018-04-20 07:18] VITALS: BP 116/81
[2018-04-20] MEDS: SERTRALINE 50MG TABLET PO SCH (09:19)
[2018-04-20] MEDS: ACETAMINOPHEN 325 MG TABLET PO PRN (10:31)
[2018-04-20] MEDS: NICOTINE 14MG/24 HR PATCH.TD24 TD SCH (10:31)
[2018-04-20 20:31] VITALS: BP 109/77
[2018-04-20] MEDS: DIVALPROEX 500 MG TABLET.DR PO SCH (21:00)
[2018-04-20] MEDS: TRAZODONE 100MG TABLET PO SCH (21:15)
[2018-04-21] MEDS: LEVOTHYROXINE 100 MCG TABLET PO SCH (05:54)
[2018-04-21 07:57] VITALS: BP 122/73
[2018-04-21] MEDS: SERTRALINE 50MG TABLET PO SCH (09:41)
[2018-04-21] MEDS: DOCUSATE 100 MG CAPSULE PO PRN (09:41)
[2018-04-21] MEDS: ACETAMINOPHEN 325 MG TABLET PO PRN (09:41)
[2018-04-21] MEDS: NICOTINE 14MG/24 HR PATCH.TD24 TD SCH (09:46)
[2018-04-21] MEDS: TRAZODONE 100MG TABLET PO SCH (20:24)
[2018-04-21] MEDS: DIVALPROEX 500 MG TABLET.DR PO SCH (20:24)
[2018-04-21 20:53] VITALS: BP 124/79
[2018-04-22] MEDS: LEVOTHYROXINE 100 MCG TABLET PO SCH (05:44)
[2018-04-22 08:11] VITALS: BP 108/76
[2018-04-22] MEDS: SERTRALINE 50MG TABLET PO SCH (09:23)
[2018-04-22] MEDS: DOCUSATE 100 MG CAPSULE PO PRN (09:23)
[2018-04-22] MEDS: NICOTINE 14MG/24 HR PATCH.TD24 TD SCH (09:29)
[2018-04-22] MEDS: ACETAMINOPHEN 325 MG TABLET PO PRN (19:24)
[2018-04-22 19:44] VITALS: BP 107/75
[2018-04-22] MEDS: DIVALPROEX 500 MG TABLET.DR PO SCH (20:35)
[2018-04-22] MEDS: TRAZODONE 100MG TABLET PO SCH (20:35)
[2018-04-23] MEDS: LEVOTHYROXINE 100 MCG TABLET PO SCH (05:45)
[2018-04-23 08:00] VITALS: BP 110/72
[2018-04-23] MEDS: SERTRALINE 50MG TABLET PO SCH (08:15)
[2018-04-23] MEDS: NICOTINE 14MG/24 HR PATCH.TD24 TD SCH (10:56)
[2018-04-23] MEDS: DOCUSATE 100 MG CAPSULE PO PRN (10:56)
[2018-04-23 19:49] VITALS: BP 130/83
[2018-04-23] MEDS: TRAZODONE 100MG TABLET PO SCH (20:06)
[2018-04-23] MEDS: DIVALPROEX 500 MG TABLET.DR PO SCH (20:06)
[2018-04-23] MEDS: ACETAMINOPHEN 325 MG TABLET PO PRN (20:08)
[2018-04-24] MEDS: LEVOTHYROXINE 100 MCG TABLET PO SCH (06:01)
[2018-04-24 07:48] VITALS: BP 117/78
[2018-04-24] MEDS: SERTRALINE 50MG TABLET PO SCH (08:55)
[2018-04-24] MEDS: ACETAMINOPHEN 325 MG TABLET PO PRN ×2 (08:55→19:53)
[2018-04-24] MEDS: DOCUSATE 100 MG CAPSULE PO PRN (09:01)
[2018-04-24] MEDS: NICOTINE 14MG/24 HR PATCH.TD24 TD SCH (12:58)
[2018-04-24 19:40] VITALS: BP 124/78
[2018-04-24] MEDS: DIVALPROEX 500 MG TABLET.DR PO SCH (19:53)
[2018-04-24] MEDS: TRAZODONE 100MG TABLET PO SCH (19:53)
[2018-04-25] MEDS: LEVOTHYROXINE 100 MCG TABLET PO SCH (05:45)
[2018-04-25 07:26] VITALS: BP 107/68
[2018-04-25] MEDS ORDERED: SERT50TA PO ×3 (07:36→07:41)
[2018-04-25] MEDS: SERTRALINE 50MG TABLET PO SCH (08:30)
== END 2018-04-25 09:15 | disposition home or self-care (01) | DRG 885 ==
LOC: 3E 00:43
PROVIDERS: ADMIT Psychiatry & Neurology Psychosomatic Medicine; ATTEND Psychiatry & Neurology Psychosomatic Medicine
DX: F20.0 Paranoid schizophrenia (principal); F33.2 Major depressive disorder, recurrent severe without psychotic features; Z68.41 Body mass index [BMI] 40.0-44.9, adult; E03.9 Hypothyroidism, unspecified; E66.9 Obesity, unspecified; G47.00 Insomnia, unspecified; G89.29 Other chronic pain; F17.210 Nicotine dependence, cigarettes, uncomplicated; Z79.899 Other long term (current) drug therapy; Z91.19 Patient's noncompliance with other medical treatment and regimen
CPT/HCPCS: 36415; 71045; 80061; 80164; 81003; 82140; 82607; 84439; 84443; 84703; 85651; 86592; 93005; Q0162

== ENCOUNTER 2018-04-27 04:30 | Emergency (ER) | payer MEDICARE, MEDICAID ==
[~2018-04-27] VITALS: Ht 152.4 cm; Wt 105.0 kg
[2018-04-27 04:32] VITALS: BP 117/83
--- NOTE | 2018-04-27 05:33 | NUR ---
pt not in lobby
--- NOTE | 2018-04-27 05:55 | NUR ---
ATTEMPTED TO CALL PT FROM LOBBY TO TRIAGE. PT NOT IN LOBBY X 2ND ATTEMPT
--- NOTE | 2018-04-27 06:02 | NUR ---
PT NOT IN LOBBY AFTER 3RD ATTEMPT. PT LWBS.
== END 2018-04-27 06:14 | disposition left against medical advice (07) ==
LOC: ED 05:30
DX: R68.89 Other general symptoms and signs (principal); Z53.21 Procedure and treatment not carried out due to patient leaving prior to being seen by health care provider

== ENCOUNTER 2018-05-01 18:29 | Emergency (ER) | payer MEDICARE, MEDICAID ==
[~2018-05-01] VITALS: Ht 152.4 cm; Wt 94.7 kg
--- NOTE | 2018-05-01 18:57 | NUR ---
PT BACKPACK TAKEN, PT SITTING WITHIN VIEW OF CHARGE AND THROUGHPUT RN.
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
[2018-05-01 19:34] LABS: BASOPHILS # (AUTO) 0.01 x10^3/uL (0-0.1); BASOPHILS % (AUTO) 0 % (0-1); EOSINOPHILS # (AUTO) 0.14 x10^3/uL (0-0.4); EOSINOPHILS % (AUTO) 2 % (1-7); LYMPHOCYTES # (AUTO) 2.64 x10^3/uL (1-3.4); LYMPHOCYTES % (AUTO) 32 % (22-44); MD NO; MEAN CORPUSCULAR HEMOGLOBIN 30.8 pg (27.0-34.8); MEAN CORPUSCULAR HGB CONC 33.2 g/dL (32.4-35.8); MEAN CORPUSCULAR VOLUME 92.5 fL (80-100); MONOCYTES # (AUTO) 0.59 x10^3/uL (0.2-0.8); MONOCYTES % (AUTO) 7 % (2-9); NEUTROPHILS # (AUTO) 4.92 x10^3/uL (1.8-6.8); NEUTROPHILS % (AUTO) 59 % (42-75); PLATELET COUNT 361 x10^3/uL (130-400); RED BLOOD COUNT 5.04 x10^6/uL (3.82-5.3); RED CELL DISTRIBUTION WIDTH 13.4 % (9.6-15.2)
[2018-05-01 19:42] LABS: ALBUMIN 3.5 g/dL (3.4-5.0); ANION GAP 5 mmol/L (5-15); CALCIUM 9.2 mg/dL (8.5-10.1); CHLORIDE 109 mmol/L (98-107); CREATININE 0.66 mg/dL (0.55-1.02)
[2018-05-01 19:45] LABS: ACETAMINOPHEN < 2 mcg/mL (10-30)
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
--- NOTE | 2018-05-01 21:20 | NUR ---
PT RESTING IN NAD. PT AWARE THAT UA IS NEEDED BUT HAS NOT PROVIDED SAMPLE YET. SITTER IN VIEW OF PT.
--- NOTE | 2018-05-01 23:00 | NUR ---
PT SLEEPING. WAITING FOR TELE PSYCH EVAL. PT HAS NO NEEDS. SITTER IN VIEW OF PT.
--- NOTE | 2018-05-02 00:22 | NUR ---
PT EVALUATED BY TELE PSYCH. WAITING FOR MD TO RE EVALUATE. SITTER IN VIEW OF PT.
[2018-05-02 01:00] VITALS: BP 142/85
--- NOTE | 2018-05-02 01:18 | NUR ---
Patient given discharge instructions and they have confirmed that they understand the instructions. Patient ambulatory with steady gait.
== END 2018-05-02 01:22 | disposition home or self-care (01) ==
LOC: ED 20:08
DX: F25.9 Schizoaffective disorder, unspecified (principal); F31.9 Bipolar disorder, unspecified
CPT/HCPCS: 36415; 80048; 80307; 80329; 82040; 85025; 99284; G0480

== ENCOUNTER 2018-05-26 15:22 | Observation (INO) | payer MEDICARE, MEDICAID ==
[~2018-05-26] VITALS: Ht 154.9 cm; Wt 99.9 kg
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
[2018-05-26 16:18] LABS: BASOPHILS # (AUTO) 0.02 x10^3/uL (0-0.1); BASOPHILS % (AUTO) 0 % (0-1); EOSINOPHILS # (AUTO) 0.17 x10^3/uL (0-0.4); EOSINOPHILS % (AUTO) 2 % (1-7); LYMPHOCYTES # (AUTO) 2.27 x10^3/uL (1-3.4); LYMPHOCYTES % (AUTO) 27 % (22-44); MD NO; MEAN CORPUSCULAR HEMOGLOBIN 30.1 pg (27.0-34.8); MEAN CORPUSCULAR HGB CONC 33.3 g/dL (32.4-35.8); MEAN CORPUSCULAR VOLUME 90.3 fL (80-100); MEAN PLATELET VOLUME 8.2 fL (7.4-10.4); MONOCYTES # (AUTO) 0.88 x10^3/uL (0.2-0.8); MONOCYTES % (AUTO) 11 % (2-9); NEUTROPHILS # (AUTO) 4.94 x10^3/uL (1.8-6.8); NEUTROPHILS % (AUTO) 60 % (42-75); PLATELET COUNT 368 x10^3/uL (130-400); RED BLOOD COUNT 4.62 x10^6/uL (3.82-5.3); RED CELL DISTRIBUTION WIDTH 13.4 % (9.6-15.2)
[2018-05-26 16:25] LABS: ALANINE AMINOTRANSFERASE 32 U/L (12-78); ALBUMIN 3.3 g/dL (3.4-5.0); ANION GAP 7 mmol/L (5-15); CALCIUM 8.7 mg/dL (8.5-10.1); CHLORIDE 107 mmol/L (98-107); CREATININE 0.55 mg/dL (0.55-1.02); SALICYLATE LEVEL 3.1 mg/dL (2.8-20.0)
[2018-05-26 16:27] LABS: ACETAMINOPHEN < 2 mcg/mL (10-30); ALKALINE PHOSPHATASE 35 U/L (45-117); BILIRUBIN,TOTAL 0.3 mg/dL (0.2-1.0); TOTAL PROTEIN 6.6 g/dL (6.4-8.2)
[2018-05-26 16:37] LABS: AMPHETAMINE SCREEN, URINE Negative (Negative); BARBITURATE SCREEN, URINE Negative (Negative); BENZODIAZEPINE SCREEN, URINE Negative (Negative); CANNABINOID SCREEN, URINE Negative (Negative); COCAINE SCREEN, URINE Negative (Negative); METHADONE SCREEN, URINE Negative (Negative); OPIATE SCREEN, URINE Positive (Negative)
--- NOTE | 2018-05-26 17:20 | NUR ---
PATIENT AWAITING TELEPSYCH CONSULT. PATIENT CALM IN BED.
--- NOTE | 2018-05-26 18:13 | NUR ---
PATIENT ATE ALL OF DINNER. SHE IS ASLEEP AND STILL WAITING FOR TELEPSYCH CONSULT.
--- NOTE | 2018-05-26 18:59 | NUR ---
RECEIVED REPORT FROM JAYME DISLA TO ASSUME PT. CARE. PT. RESTING ON GURNEY RIGHT SIDE LYING IN POSITION. TELEBOT IN ROOM; PT. AWAITING TELEPSYCH EVAL. NO BELONGINGS IN ROOM. ROOM IS SECURED. SITTER IN ROBBINS.
--- NOTE | 2018-05-26 19:15 | NUR ---
REPORT TO REMEDIOS HERNANDEZ.
--- NOTE | 2018-05-26 19:21 | NUR ---
CAROLANN IN PROGRESS NOW BY REMEDIOS HERNANDEZ.
--- NOTE | 2018-05-26 20:46 | NUR ---
PT. RESTING ON GURNEY IN PRONE POSITION. PT. TO BE LEGAL HOLD PER TELEPSYCH. PT. AWAITING [facility] EVAL FOR ADMISSION PRIOR TO GOING TO . 2N IS AWARE OF THIS PT. PT. HAS EVEN, NON-LABORED RESPIRATIONS VISIBLE. NADN. ROOM SECURED. SITTER IN DOORWAY.
--- NOTE | 2018-05-26 21:51 | NUR ---
PT. RESTING ON GURNEY IN SUPINE POSITION. EVEN, NON-LABORED RESP NOTED. EYES CLOSED. NADN. ROOM SECURED. SITTER IN ROBBINS.
--- NOTE | 2018-05-26 23:00 | NUR ---
PT. CONTINUES RESTING ON GURNEY WITH NO CHANGE FROM PREVIOUS NOTE. PT. CONTINUES TO AWAIT [facility] EVWI. SITTER REMAINS IN ROBBINS AND ROOM REMAINS SECURED.
--- NOTE | 2018-05-26 23:17 | NUR ---
REPORT TO JAYME ROSSI. FLOOR READY FOR PT. TRANSPORT.
[2018-05-26] MEDS ORDERED: ONDANSETRON ODT 4 MG PO PRN (23:30)
[2018-05-26] MEDS ORDERED: DOCUSATE 100 MG CAPSULE PO PRN (23:30)
[2018-05-26 23:42] VITALS: BP 111/71
[2018-05-26] MEDS: DIVALPROEX 500 MG TABLET.DR PO SCH (23:49)
[2018-05-26] MEDS: OLANZAPINE 10 MG TABLET PO SCH (23:49)
[2018-05-27 00:26] VITALS: BP 111/71
[2018-05-27] MEDS: LEVOTHYROXINE 100 MCG TABLET PO SCH (07:46)
[2018-05-27] MEDS: FLUOXETINE HCL 20 MG CAPSULE PO SCH (07:47)
[2018-05-27 07:56] VITALS: BP 99/67
[2018-05-27 20:00] VITALS: BP 99/67
[2018-05-27 20:00] LABS: RAPID INFLUENZA A Negative (Negative); RAPID INFLUENZA B Negative (Negative)
[2018-05-27] MEDS: OLANZAPINE 10 MG TABLET PO SCH (21:50)
[2018-05-27] MEDS: DIVALPROEX 500 MG TABLET.DR PO SCH (21:50)
[2018-05-28] MEDS: LEVOTHYROXINE 100 MCG TABLET PO SCH (07:37)
[2018-05-28] MEDS: FLUOXETINE HCL 20 MG CAPSULE PO SCH (07:37)
[2018-05-28 07:39] VITALS: BP 120/61
== END 2018-05-28 15:21 | disposition home or self-care (01) ==
LOC: ED 17:20 → EDIP 19:59 → 2N 23:39
PROVIDERS: ADMIT Internal Medicine; ATTEND Internal Medicine
DX: R45.851 Suicidal ideations (principal); F32.9 Major depressive disorder, single episode, unspecified; E03.9 Hypothyroidism, unspecified; E66.9 Obesity, unspecified; F15.90 Other stimulant use, unspecified, uncomplicated; F17.200 Nicotine dependence, unspecified, uncomplicated; F25.1 Schizoaffective disorder, depressive type; F41.1 Generalized anxiety disorder; G89.29 Other chronic pain; I10 Essential (primary) hypertension; Z90.710 Acquired absence of both cervix and uterus; Z91.14 Patient's other noncompliance with medication regimen; Z91.19 Patient's noncompliance with other medical treatment and regimen; R42 Dizziness and giddiness
CPT/HCPCS: 36415; 80053; 80307; 80329; 85025; 87400; 99284; G0378; G0480

== ENCOUNTER 2018-06-25 18:02 | Emergency (ER) | payer MEDICARE, MEDICAID ==
[~2018-06-25] VITALS: Ht 152.4 cm; Wt 94.0 kg
[2018-06-25 18:27] LABS: BASOPHILS # (AUTO) 0.05 x10^3/uL (0-0.1); BASOPHILS % (AUTO) 1 % (0-1); EOSINOPHILS # (AUTO) 0.18 x10^3/uL (0-0.4); EOSINOPHILS % (AUTO) 3 % (1-7); LYMPHOCYTES # (AUTO) 2.28 x10^3/uL (1-3.4); LYMPHOCYTES % (AUTO) 33 % (22-44); MD NO; MEAN CORPUSCULAR HEMOGLOBIN 31.1 pg (27.0-34.8); MEAN CORPUSCULAR HGB CONC 34.3 g/dL (32.4-35.8); MEAN CORPUSCULAR VOLUME 90.7 fL (80-100); MEAN PLATELET VOLUME 8.3 fL (7.4-10.4); MONOCYTES # (AUTO) 0.64 x10^3/uL (0.2-0.8); MONOCYTES % (AUTO) 9 % (2-9); NEUTROPHILS # (AUTO) 3.84 x10^3/uL (1.8-6.8); NEUTROPHILS % (AUTO) 55 % (42-75); PLATELET COUNT 323 x10^3/uL (130-400); RED BLOOD COUNT 4.64 x10^6/uL (3.82-5.3); RED CELL DISTRIBUTION WIDTH 14.1 % (9.6-15.2)
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
[2018-06-25 18:37] LABS: ALANINE AMINOTRANSFERASE 21 U/L (12-78); ALBUMIN 3.5 g/dL (3.4-5.0); ANION GAP 7 mmol/L (5-15); CALCIUM 8.6 mg/dL (8.5-10.1); CHLORIDE 108 mmol/L (98-107); CREATININE 0.64 mg/dL (0.55-1.02); SALICYLATE LEVEL 3.8 mg/dL (2.8-20.0)
[2018-06-25 18:40] LABS: ALKALINE PHOSPHATASE 35 U/L (45-117); BILIRUBIN,TOTAL 0.2 mg/dL (0.2-1.0); TOTAL PROTEIN 6.8 g/dL (6.4-8.2)
[2018-06-25 18:44] LABS: ACETAMINOPHEN < 2 mcg/mL (10-30)
--- NOTE | 2018-06-25 19:08 | NUR ---
REPORT RECEIVED FROM JAYME ROUSSEAU. ASSUMED CARE OF PT. LYING ON STRECHER, NO DISTRESS NOTED, NO COMPLAINTS VOICEDCALL LIGHT IN REACH
--- NOTE | 2018-06-25 20:19 | NUR ---
PT RESTING QUIETLY, NO DISTRESS NOTED, AWARE OF NEED FOR URINE, SITTER OUTSIDE DOOR
--- NOTE | 2018-06-25 20:38 | NUR ---
US COLLECTED AND TAKEN TO LAB Addendum: 06/25/18 at 2038 by CHANTE UA
[2018-06-25 20:55] LABS: AMPHETAMINE SCREEN, URINE Negative (Negative); BARBITURATE SCREEN, URINE Negative (Negative); BENZODIAZEPINE SCREEN, URINE Negative (Negative); CANNABINOID SCREEN, URINE Negative (Negative); COCAINE SCREEN, URINE Negative (Negative); METHADONE SCREEN, URINE Negative (Negative); OPIATE SCREEN, URINE Negative (Negative)
--- NOTE | 2018-06-25 20:58 | NUR ---
TELEPSYCH INITIATED, 30041 BOT PLACED AT BS.
--- NOTE | 2018-06-25 21:50 | NUR ---
PT RESTING QUIETLY WITH EYES CLOSED, NO DISTRESS NOTED, SITTER OUTSIDE DOOR
--- NOTE | 2018-06-25 22:32 | NUR ---
PT CONTINUES TO REST WUIETLY WITH EYES CLOSED, NO DISTRESS NOTED, SITTER OUTSIDE DOOR
--- NOTE | 2018-06-26 00:27 | NUR ---
PT RESTING WITH EYE S CLOSED, SOFT SNORING HEARD, NO DISTRESS NOTED, SITTER OUTSIDE DOOR
--- NOTE | 2018-06-26 01:13 | NUR ---
TASK RN: REPORT TO SOC .
--- NOTE | 2018-06-26 01:23 | NUR ---
TELEPSYCH IN PROGRESS
[2018-06-26 01:34] VITALS: BP 115/69
--- NOTE | 2018-06-26 02:28 | NUR ---
PT RESTING QUIETLY WITH EYES CLOSED, NO DISTRESS NOTED, SITTER OUTSIDE DOOR
--- NOTE | 2018-06-26 03:38 | NUR ---
Patient/Caregiver given discharge instructions and they have confirmed that they understand the instructions. Patient ambulatory with steady gait.
== END 2018-06-26 03:41 | disposition home or self-care (01) ==
LOC: ED 19:33
DX: F25.9 Schizoaffective disorder, unspecified (principal); S59.901A Unspecified injury of right elbow, initial encounter; F32.9 Major depressive disorder, single episode, unspecified; E03.9 Hypothyroidism, unspecified; Z72.9 Problem related to lifestyle, unspecified; Z90.710 Acquired absence of both cervix and uterus; Y33.XXXA Other specified events, undetermined intent, initial encounter; Y93.89 Activity, other specified; Y92.89 Other specified places as the place of occurrence of the external cause; Y99.8 Other external cause status
CPT/HCPCS: 36415; 80053; 80307; 80329; 85025; 99284; G0480

== ENCOUNTER 2018-09-06 02:37 | Emergency (ER) | payer MEDICARE, MEDICAID ==
[~2018-09-06] VITALS: Ht 152.4 cm; Wt 94.6 kg
[2018-09-06 03:39] LABS: BASOPHILS # (AUTO) 0.04 x10^3/uL (0-0.1); BASOPHILS % (AUTO) 1 % (0-1); EOSINOPHILS # (AUTO) 0.19 x10^3/uL (0-0.4); EOSINOPHILS % (AUTO) 3 % (1-7); LYMPHOCYTES # (AUTO) 2.15 x10^3/uL (1-3.4); LYMPHOCYTES % (AUTO) 31 % (22-44); MD NO; MEAN CORPUSCULAR HEMOGLOBIN 30.5 pg (27.0-34.8); MEAN CORPUSCULAR HGB CONC 33.1 g/dL (32.4-35.8); MEAN CORPUSCULAR VOLUME 92.2 fL (80-100); MEAN PLATELET VOLUME 7.9 fL (7.4-10.4); MONOCYTES % (AUTO) 7 % (2-9); NEUTROPHILS # (AUTO) 4.06 x10^3/uL (1.8-6.8); NEUTROPHILS % (AUTO) 59 % (42-75); PLATELET COUNT 327 x10^3/uL (130-400); RED BLOOD COUNT 4.83 x10^6/uL (3.82-5.3); RED CELL DISTRIBUTION WIDTH 14.4 % (9.6-15.2)
[2018-09-06 03:46] LABS: ALBUMIN 3.2 g/dL (3.4-5.0); ANION GAP 5 mmol/L (5-15); CALCIUM 8.7 mg/dL (8.5-10.1); CHLORIDE 107 mmol/L (98-107); SALICYLATE LEVEL 1.9 mg/dL (2.8-20.0)
[2018-09-06 04:52] VITALS: BP 119/74
== END 2018-09-06 05:17 | disposition home or self-care (01) ==
LOC: ED 03:34
DX: F19.151 Other psychoactive substance abuse with psychoactive substance-induced psychotic disorder with hallucinations (principal); F10.120 Alcohol abuse with intoxication, uncomplicated; F25.9 Schizoaffective disorder, unspecified; E03.9 Hypothyroidism, unspecified; Z72.9 Problem related to lifestyle, unspecified
CPT/HCPCS: 36415; 80048; 80307; 82040; 85025; 99283; 99284

== ENCOUNTER 2019-03-01 13:41 | Inpatient (IN) | payer MEDICARE ==
[~2019-03-01] VITALS: Ht 152.4 cm; Wt 92.3 kg
[2019-03-01] MEDS ORDERED: DOCUSATE 100 MG CAPSULE PO PRN (14:00)
[2019-03-01] MEDS ORDERED: BISACODYL 10 MG SUPP PR PRN (14:00)
[2019-03-01] MEDS ORDERED: ONDANSETRON ODT 4 MG PO PRN (14:00)
[2019-03-01] MEDS ORDERED: POLYETHYLENE GLYCOL 17 GM PACKET PO PRN (14:00)
[2019-03-01] MEDS ORDERED: HYDROXYZINE PAMOATE 50MG CAP PO PRN (14:00)
[2019-03-01] MEDS ORDERED: IBUP100T9 PO (14:15)
[2019-03-01] MEDS ORDERED: RISP2TAB35 PO (15:03)
[2019-03-01 15:19] LABS: BASOPHILS # (AUTO) 0.04 x10^3/uL (0-0.1); BASOPHILS % (AUTO) 1 % (0-1); EOSINOPHILS # (AUTO) 0.27 x10^3/uL (0-0.4); EOSINOPHILS % (AUTO) 4 % (1-7); LYMPHOCYTES # (AUTO) 2.84 x10^3/uL (1-3.4); LYMPHOCYTES % (AUTO) 37 % (22-44); MD NO; MEAN CORPUSCULAR HEMOGLOBIN 30.9 pg (27.0-34.8); MEAN CORPUSCULAR HGB CONC 33.3 g/dL (32.4-35.8); MEAN CORPUSCULAR VOLUME 92.7 fL (80-100); MEAN PLATELET VOLUME 7.5 fL (7.4-10.4); MONOCYTES # (AUTO) 0.89 x10^3/uL (0.2-0.8); MONOCYTES % (AUTO) 12 % (2-9); NEUTROPHILS # (AUTO) 3.55 x10^3/uL (1.8-6.8); NEUTROPHILS % (AUTO) 47 % (42-75); PLATELET COUNT 371 x10^3/uL (130-400); RED BLOOD COUNT 4.64 x10^6/uL (3.82-5.3); RED CELL DISTRIBUTION WIDTH 14.2 % (9.6-15.2)
[2019-03-01 15:32] LABS: CALCIUM 8.4 mg/dL (8.5-10.1); CHOLESTEROL, TOTAL 188 mg/dL (140-239); CREATININE 0.69 mg/dL (0.55-1.02)
[2019-03-01 15:51] LABS: ANION GAP 5 mmol/L (5-15); CHLORIDE 111 mmol/L (98-107)
[2019-03-01 15:53] LABS: TRIGLYCERIDES 129 mg/dL (50-200); VLDL CHOLESTEROL 26 mg/dL (0-25)
[2019-03-01 15:54] LABS: CHOL/HDL RATIO 3.4; FREE T4 (FREE THYROXINE) 0.74 ng/dL (0.76-1.46); HDL CHOL % 30 % (28-40); HDL CHOLESTEROL (DIRECT) 56 mg/dL (40-60); LDL CHOLESTEROL,CALCULATED 106 mg/dL (54-169); LDL/HDL RATIO 1.9 (0.5-3.0)
[2019-03-01] MEDS ORDERED: NICOTINE 21 MG/24 HR PATCH.TD24 TD ONE (16:30)
[2019-03-01 19:37] VITALS: BP 83/51
[2019-03-01] MEDS: RISPERIDONE 2 MG TABLET PO SCH (20:15)
[2019-03-01] MEDS: TRAZODONE 100MG TABLET PO SCH (20:15)
[2019-03-01] MEDS: DIVALPROEX 500 MG TABLET.DR PO SCH (20:15)
[2019-03-02 06:09] LABS: MICROSCOPIC NOT IND
[2019-03-02 06:11] LABS: CULTURE INDICATED? NO
[2019-03-02 07:37] VITALS: BP 107/64
[2019-03-02] MEDS: LEVOTHYROXINE 100 MCG TABLET PO SCH (08:17)
[2019-03-02] MEDS: NICOTINE 21 MG/24 HR PATCH.TD24 TD SCH (08:18)
[2019-03-02] MEDS: RISPERIDONE 2 MG TABLET PO SCH ×2 (08:19→20:10)
[2019-03-02] MEDS ORDERED: FLUOXETINE HCL 20 MG CAPSULE PO SCH (09:00)
[2019-03-02] MEDS: SERTRALINE 50MG TABLET PO SCH (14:15)
[2019-03-02 19:33] VITALS: BP 114/73
[2019-03-02] MEDS: TRAZODONE 100MG TABLET PO SCH (20:10)
[2019-03-02] MEDS: DIVALPROEX 500 MG TABLET.DR PO SCH (20:10)
[2019-03-03 07:21] VITALS: BP 111/75
[2019-03-03] MEDS: NICOTINE 21 MG/24 HR PATCH.TD24 TD SCH (08:11)
[2019-03-03] MEDS: SERTRALINE 50MG TABLET PO SCH (08:11)
[2019-03-03] MEDS: RISPERIDONE 2 MG TABLET PO SCH ×2 (08:12→20:32)
[2019-03-03] MEDS: LEVOTHYROXINE 100 MCG TABLET PO SCH (08:12)
[2019-03-03] MEDS: ACETAMINOPHEN 325 MG TABLET PO PRN (14:00)
[2019-03-03 19:40] VITALS: BP 120/87
[2019-03-03] MEDS: DIVALPROEX 500 MG TABLET.DR PO SCH (20:32)
[2019-03-03] MEDS: TRAZODONE 100MG TABLET PO SCH (20:32)
[2019-03-04 07:00] VITALS: BP_SYST 128; BP_SYST 91; BP_DIAS 50; BP_DIAS 75
[2019-03-04] MEDS: RISPERIDONE 2 MG TABLET PO SCH ×2 (08:16→20:31)
[2019-03-04] MEDS: NICOTINE 21 MG/24 HR PATCH.TD24 TD SCH (08:16)
[2019-03-04] MEDS: LEVOTHYROXINE 100 MCG TABLET PO SCH (08:17)
[2019-03-04] MEDS: SERTRALINE 50MG TABLET PO SCH (08:17)
[2019-03-04] MEDS: ACETAMINOPHEN 325 MG TABLET PO PRN (08:17)
[2019-03-04 08:21] VITALS: BP 103/75
[2019-03-04 19:44] VITALS: BP 111/73
[2019-03-04] MEDS: DIVALPROEX 500 MG TABLET.DR PO SCH (20:31)
[2019-03-04] MEDS: TRAZODONE 100MG TABLET PO SCH (20:31)
[2019-03-05 07:27] VITALS: BP 116/79
[2019-03-05] MEDS: NICOTINE 21 MG/24 HR PATCH.TD24 TD SCH (08:55)
[2019-03-05] MEDS: SERTRALINE 50MG TABLET PO SCH (08:56)
[2019-03-05] MEDS: LEVOTHYROXINE 100 MCG TABLET PO SCH (08:56)
[2019-03-05] MEDS: RISPERIDONE 2 MG TABLET PO SCH (08:56)
== END 2019-03-05 12:15 | disposition home or self-care (01) | DRG 885 ==
LOC: 3E 14:12
PROVIDERS: ADMIT Psychiatry & Neurology Psychosomatic Medicine; ATTEND Psychiatry & Neurology Psychosomatic Medicine
DX: F20.0 Paranoid schizophrenia (principal); R45.851 Suicidal ideations; E03.9 Hypothyroidism, unspecified; E66.9 Obesity, unspecified; G89.29 Other chronic pain; F17.210 Nicotine dependence, cigarettes, uncomplicated; I10 Essential (primary) hypertension; Z79.899 Other long term (current) drug therapy; Z88.0 Allergy status to penicillin; Z68.39 Body mass index [BMI] 39.0-39.9, adult
CPT/HCPCS: 36415; 71045; 80048; 80061; 81003; 82140; 82607; 84439; 84443; 85025; 93005